=== PATIENT | female | born 2000 | race Two or more races ===

== ENCOUNTER 2025-02-09 11:53 | Emergency (ER) | payer OTHER ==
[~2025-02-09] VITALS: Ht 157.5 cm; Wt 67.1 kg
[2025-02-09] MEDS ORDERED: 0.9 % SODIUM CHLORIDE 1,000 ML IV STA (14:14)
[2025-02-09] MEDS ORDERED: PANTOPRAZOLE SODIUM 40 MG/VIAL VIAL IV PUSH STA (14:15)
[2025-02-09 15:53] LABS: BASO % 0.4 % (0.1-1.2); EOS # 0.09 (0.04-0.54); EOS % 3.3 % (0.7-7.0); LYMPH # 0.91 (1.18-3.74); LYMPH % 33.0 % (19.3-53.1); MEAN PLATELET VOLUME 11.60 fl (9.4-12.4); MONO # 0.20 (0.24-0.82); MONO % 7.2 % (4.7-12.5); NEUT # 1.54 (1.56-6.13); NEUT % 55.7 % (34.0-71.1); RED CELL DISTRIBUTION WIDTH 12.7 % (11.6-14.4)
[2025-02-09 16:08] LABS: EOSINOPHIL MAN 2.0 %; LYMPHOCYTE MAN 32.0 %; MONOCYTE MAN 2.0 %; NEUTROPHILS MAN 54.0 %
[2025-02-09 16:11] LABS: INR 1.0
[2025-02-09 16:15] LABS: ALT/SGPT 40.0 U/L (12-78); AST/SGOT 40.0 U/L (15-37); BILIRUBIN TOTAL 0.35 mg/dL (0.3-1.2); BUN CREA RATIO 16.0 (7.0-25.0); CREATININE SERUM 0.61 mg/dL (0.55-1.02); GFR 122.65; GLOBULINA 4.1 G/DL (2.4-3.5); GLUCOSE FASTING 91.0 mg/dL (65-100); OSMOLALITY SERUM 276.0 MOSM/KG (275-295)
[2025-02-09 16:20] LABS: URINE APPEARANCE Clear; URINE BILIRRUBIN Negative (NEGATIVE); URINE BLOOD NHT; URINE COLOR Yellow; URINE GLUCOSE Negative (NEGATIVE); URINE KETONE 15 (NEGATIVE); URINE LEUKOCYTE Negative; URINE NITRATE Negative; URINE PROTEIN Trace (NEGATIVE); URINE UROBILINOGEN 1.0 E.U./dl
[2025-02-09 16:24] LABS: URINE BACTERIA 4342.4 uL (0.0-1933); URINE EPITHELIAL CELLS 40.6 uL (0.0-38.8); URINE RBC 23.6 uL (0.0-20.8); URINE WBC 26.9 uL (0.0-23.2)
[2025-02-09 16:45] LABS: URINE CAST 0.58 uL (0.0-1.40)
[2025-02-09] MEDS ORDERED: ACETAMINOPHEN500 M1 PO (21:40)
== END 2025-02-09 21:51 | disposition home or self-care (01) ==
LOC: ER 11:53
PROVIDERS: General Practice
DX: B34.9 Viral infection, unspecified (principal); R50.9 Fever, unspecified